=== PATIENT | male | born 1970 | race Caucasian/White ===

== ENCOUNTER 2019-10-09 23:51 | Observation (INO) | payer OTHER ==
[~2019-10-09] VITALS: Ht 193 cm; Wt 99.3 kg
[2019-10-10 00:05] VITALS: BP 144/97
[2019-10-10 01:18] LABS: BASO # 0.1 10*3/uL (0.0-0.1); BASO % 0.9 % (0.0-1.0); EOS # 0.2 10*3/uL (0.0-0.4); EOS % 2.4 % (1.0-4.0); HEMATOCRIT 44.3 % (42.0-52.0); LYMPH # 2.4 10*3/uL (1.3-4.4); LYMPH % 24.6 % (27.0-41.0); MEAN CELL VOLUME 87.7 fl (80.0-94.0); MEAN CORPUSCULAR HGB 29.7 pg (27.0-31.0); MEAN CORPUSCULAR HGB CONC 33.9 g/dl (33.0-37.0); MEAN PLATELET VOLUME 10.1 fl (9.6-12.3); MONO # 0.8 10*3/uL (0.1-1.0); MONO % 8.2 % (3.0-9.0); NEUT # 6.1 10*3/uL (2.3-7.9); NEUT % 63.5 % (47.0-73.0); PLATELET COUNT AUTOMATED 424 10*3/uL (130-400); RED BLOOD COUNT 5.05 10*6/uL (4.50-5.90); RED CELL DISTRI WIDTH 12.8 % (0-14.5); WHITE BLOOD COUNT 9.6 10*3/uL (4.8-10.8)
[2019-10-10 01:25] LABS: ACT PARTIAL THROMBO TIME 25.4 SECONDS (20.0-32.1); INTERNATIONAL NORM RATIO 0.9 (2.0-3.5)
[2019-10-10 01:30] LABS: ALBUMIN 3.6 gm/dl (3.1-4.5); ALKALINE PHOSPHATASE 67 U/L (45-117); BUN 14 mg/dl (7-24); CHLORIDE 110 mmol/L (98-107); CREATININE 1.14 mg/dL (0.70-1.30); POTASSIUM 3.4 mmol/L (3.5-5.1); SGOT/AST 23 IU/L (3-35); SGPT/ALT 34 U/L (12-78); SODIUM 141 mmol/L (136-145); TOTAL PROTEIN 7.1 gm/dL (6.4-8.2)
[2019-10-10 01:31] LABS: TROPONIN I < 0.015 ng/ml (<0.045)
--- NOTE | 2019-10-10 04:00 | NUR ---
PT TO CT. CONDITION STABLE.
--- NOTE | 2019-10-10 04:34 | NUR ---
PT DECLINES CHANGING INTO A HOSPITAL GOWN.
--- NOTE | 2019-10-10 04:49 | NUR ---
PER CONCESSION MANAGER, PT LOOKING FOR WALLET. WILL BRING PT TO FLOOR WHEN WALLET FOUND.
[2019-10-10 05:15] VITALS: BP 159/109; BP 164/104
--- NOTE | 2019-10-10 05:15 | NUR ---
A 49, admitted to 4E, under the services of GRAZYNA Alejo DO with a diagnosis of CHEST PAIN. Chief complaint is CHEST PAIN. Patient arrived via stretcher from ER. Monitor applied. Initial assessment completed. Vital signs taken and recorded. GRAZYNA ALEJO DO notified of admission to the unit. Orders received. See assessment for past medical history, medications and allergies. Patient and/or family oriented to unit. [facility] visitation policy reviewed. Clothing/patient valuable form completed. LISA QUINTANILLA
[2019-10-10 05:20] VITALS: BP 164/104
--- NOTE | 2019-10-10 05:33 | NUR ---
PO NORCO GIVEN PER 'S ORDERS FOR C/O PAIN IN EPIGASTRIC AREA. BP CURRENTLY 164/104 MANUALLY. IN ROOM-AWARE OF ELEVATED BP.
[2019-10-10] MEDS ORDERED: CYCLOBENZAPRINE10 MG PO (05:35)
[2019-10-10] MEDS ORDERED: Motrin,Rufen800 MG PO (05:40)
[2019-10-10] MEDS ORDERED: LISINOPRIL20 MG PO (05:40)
[2019-10-10] MEDS ORDERED: COLD & ALLERGY1 EAC1 PO (05:41)
[2019-10-10] MEDS ORDERED: MUCINEX D ER 61 EACH PO (05:42)
--- NOTE | 2019-10-10 05:47 | NUR ---
MED REC UP TO DATE PER PT RECALL.
--- NOTE | 2019-10-10 06:26 | NUR ---
NOTIFIED OF REPEAT BP 160/98 AND STILL C/O PAIN RATED 03/01. STATES HE WILL NOTIFY
--- NOTE | 2019-10-10 07:06 | NUR ---
'S ANSWERING SERVICE CALLED REGARDING CONSULT. INFORMATION LEFT WITH [employer]NAGEMENT [employer] INCLUDING CALL BACK NUMBER.
--- NOTE | 2019-10-10 07:06 | NUR ---
TEOFILO REECE [id number] Please refer to the physician's history and physical for past medical history, comorbid conditions, and allergies. Diagnosis: CHEST PAIN Greg Score: 18,AT RISK WOUND DESCRIPTIONS: Wound Number: 1 Location of the wound: left plantar aspect below great toe Type of wound: unstageable Thickness: Full Size: 4.5cm x 3.5cm x <0.1cm Tunneling: none Undermining: none Sinus Tract: none Presence of Exudate: none Amount: None Color: Brown, marx Odor: None Periwound Skin Appearance: Erythema Wound edges: approximated Pain (associated with wound): very tender to touch How does patient state this happened? pt stated this is from him walking several different places to visit family members and friends Wound Number: 2 Location of the wound: left plantar aspect below 2nd and 3rd toe Type of wound: stage 2 Thickness: Partial Size: 1.5cm x 4.5cm x <0.1cm Tunneling: none Undermining: none Sinus Tract: none Presence of Exudate: none Amount: None Color: Eldred Odor: None Periwound Skin Appearance: Erythema Wound edges: intact serum filled blister Pain (associated with wound): very tender to touch How does patient state this happened? pt stated this is from him walking several different places to visit family members and friends Wound Number: 3 Location of the wound: right plantar aspect below great and 2nd toe Type of wound: stage 2 Thickness: Partial Size: 1.0cm x 2.7cm x <0.1cm Tunneling: none Undermining: none Sinus Tract: none Presence of Exudate: none Amount: None Color: Eldred Odor: None Periwound Skin Appearance: Erythema Wound edges: intact serum filled blister Pain (associated with wound): very tender to touch How does patient state this happened? pt stated this is from him walking several different places to visit family members and friends Surface the patient is resting on: Position Pro SKIN PREVENTION RECOMMENDATION: 1. Pressure redistribution support surface as appropriate 2. Elevate heels 3. Remove boots/TEDS every shift and reapply 4. Head of bed 30 degrees as tolerated 5. Assess nutrition and hydration 6. Manage moisture 7. Avoid the use of containment devices while in bed 8. Use absorptive products on surfaces limit layers of linens on bed 9. Turn and reposition every 1-2 hours in bed and every 1 hour in chair as tolerated 10. Weight shifts every 15 minutes while up in chair 11. Offloading with pillows or device to keep heels elevated off bed 12. Monitor skin at least every shift 13. Inspect under medical devices twice a day WOUND TREATMENT RECOMMENDATIONS: Venous and arterial studies to bilateral lower extremities. Consult podiatry for areas to bilateral feet for possible debridement if studies allow and toenail care Imaging studies to bilateral feet due to skin impairments and pain Apply sureprep to right plantar aspect below great toe and 2nd toe, left plantar aspect below great toe, right plantar aspect below great and 2nd toe and cover with dsd daily and prn for soiling. Patient is requesting to follow up with podiatry upon discharge
--- NOTE | 2019-10-10 07:10 | NUR ---
NOTIFIED OF CONSULT. NEW ORDERS RECEIVED.
[2019-10-10 07:13] LABS: BASO # 0.1 10*3/uL (0.0-0.1); BASO % 1.2 % (0.0-1.0); EOS # 0.4 10*3/uL (0.0-0.4); EOS % 5.1 % (1.0-4.0); HEMATOCRIT 41.9 % (42.0-52.0); LYMPH # 2.6 10*3/uL (1.3-4.4); LYMPH % 34.6 % (27.0-41.0); MEAN CELL VOLUME 88.4 fl (80.0-94.0); MEAN CORPUSCULAR HGB 29.5 pg (27.0-31.0); MEAN CORPUSCULAR HGB CONC 33.4 g/dl (33.0-37.0); MEAN PLATELET VOLUME 9.7 fl (9.6-12.3); MONO # 0.7 10*3/uL (0.1-1.0); MONO % 9.9 % (3.0-9.0); NEUT # 3.6 10*3/uL (2.3-7.9); NEUT % 48.9 % (47.0-73.0); PLATELET COUNT AUTOMATED 361 10*3/uL (130-400); RED BLOOD COUNT 4.74 10*6/uL (4.50-5.90); RED CELL DISTRI WIDTH 12.8 % (0-14.5); WHITE BLOOD COUNT 7.4 10*3/uL (4.8-10.8)
[2019-10-10 07:45] LABS: BUN 14 mg/dl (7-24); CHLORIDE 109 mmol/L (98-107); CHOLESTEROL 179 mg/dL (<200); CREATININE 1.05 mg/dL (0.70-1.30); HDL CHOLESTEROL 29 mg/dl (40-60); LDL CHOLESTEROL 103 mg/dL (9-159); PHOSPHOROUS 2.5 mg/dL (2.5-4.9); POTASSIUM 3.4 mmol/L (3.5-5.1); SODIUM 140 mmol/L (136-145); TRIGLYCERIDES 236 mg/dl (<150); VLDL CHOLESTEROL 47 mg/dL (6-40)
[2019-10-10] MEDS ORDERED: MARIJUANA (07:45)
--- NOTE | 2019-10-10 08:15 | NUR ---
physician notified that pt is requesting something for pain. pt states that he is having "pain all over; from head to toe". pt rates pain 7/10. the physician answering the phone for designated number states that he is off shift now and that he will let the appropriate physicians know that pt is requesting something for pain. will monitor.
--- NOTE | 2019-10-10 09:00 | NUR ---
Hide Trimmer in to talk to patient. Patient states lives at home with alone. There are no steps in the home. Physician: none Pharmacy: mail Home health services: none Patient's level of ADLs: INDEPENDENT Patient has working utilities: all working DME: none Follow-up physician's appointment after d/c: will be made by hospitalist nurse director upon discharge Does patient want to access PORTAL?: no Discharge plan discussed with patient, he lives at home, is independent in adls and ambulation, he states he will return home when able and denies any home needs, contacted Chio from Business office concering patient's insurance, this insurance is active and is a [facility] medicaid product. OPHELIA POLLOCK
--- NOTE | 2019-10-10 09:13 | NUR ---
PT HAVING ECHO AT THIS TIME. NORCO 5-325 MG PO GIVEN AT THIS TIME PER THE OKAY GIVEN BY DR JACOBO AND DR CARRANZA TO BE GIVEN EARLY DUE TO PT HAVING PAIN. PHYSICIANS GIVE OKAY FOR PT TO HAVE MED WITH SIP OF WATER DUE TO STRESS TEST SCHEDULED FOR TODAY.
[2019-10-10 09:22] LABS: VITAMIN D, 25-HYDROXY 14.5 ng/mL (30-100)
--- NOTE | 2019-10-10 10:02 | NUR ---
Dr. Fuentes notified of wound care recommendations.
--- NOTE | 2019-10-10 10:45 | NUR ---
PT OFF OF FLOOR AT THIS TIME FOR ULTRASOUND
--- NOTE | 2019-10-10 12:10 | NUR ---
INFORMED CONSENT SIGNED FOR LEXISCAN STRESS TEST WITH DR. GARDNRE. RESTING EKG NSR HR 81, BP 12/94. PULSE OX 100% AND LUNGS CLEAR. COMPLETED ONE MINUTE OF LEXISCAN PROTOCOL RECEIVING LEXISCAN 0.4MG OVER [address] CHANGES NOTED WITH NO ARRHYTHMIAS. PT C/O NAUSEA. LAST RECOVERY HR 97, BP 128/78. WAITING NUCLEAR SCANNING IN STABLE CONDITION.
--- NOTE | 2019-10-10 12:17 | NUR ---
CONSULT CALLED TO PODIATRY PER PHYSICIAN ORDERS. CHEMICAL SPRAYER STATES THAT SHE WILL BE IN SOMETIME TODAY TO SEE PATIENT.
--- NOTE | 2019-10-10 12:26 | NUR ---
Nutritional Support Services Note: Pt is on a cardiac diet. Blisters noted to BL feet due to excessive walking around [place]. Encourage healthy eating to support healing of wounds. CBW: 219# Ht: 6'4. No other nutrition intervention needed. HALEIGH Biggs architect intern
--- NOTE | 2019-10-10 12:29 | NUR ---
PT STILL OFF FLOOR AT THIS TIME. PT TO HAVE ULTRASOUND AND STRESS TODAY.
--- NOTE | 2019-10-10 15:00 | NUR ---
NOTIFIED DR CARRANZA THAT PT IS OFF OF FLOOR FOR ARTERIAL ULTRASOUND. WILL CHECK BP WHEN PT RETURNS TO FLOOR.
--- NOTE | 2019-10-10 15:34 | NUR ---
PT RETURNS FROM ARTERIAL US AT THIS TIME.
[2019-10-10 15:38] VITALS: BP 168/90
[2019-10-10] MEDS ORDERED: PROTONIX20 MG PO (15:44)
[2019-10-10] MEDS ORDERED: KLOR-CON M1010 ME1 PO (15:44)
[2019-10-10] MEDS ORDERED: VITAMIN D32000 UNI1 PO (15:44)
--- NOTE | 2019-10-10 15:45 | NUR ---
MEDICAL RECORDS COORDINATOR IN TO SEE PATIENT AT THIS TIME.
[2019-10-10 16:00] VITALS: BP 153/91
--- NOTE | 2019-10-10 16:35 | NUR ---
WENT THROUGH DISCHARGE PAPERWORK AND DISCHARGE MEDICATIONS WITH PATIENT. PT REQUESTS SOMETHING FOR PAIN. DR CARRANZA NOTIFIED AND CALLS BACK AND STATES THAT PT CAN TAKE SOMETHING OTC FOR PAIN AT THIS TIME. WILL NOTIFY PATIENT.
--- NOTE | 2019-10-10 16:50 | NUR ---
Discharge instructions reviewed with patient/family. Patient receptive and verbalizes understanding. Follow-up care arranged. Written instructions given to patient/family. ZORAN DUNLAP
== END 2019-10-10 16:50 | disposition home or self-care (01) ==
LOC: ED 23:51 → 4E 10-10 03:07 → EDHOLD 10-10 03:07 → 4E 10-10 03:07
PROVIDERS: Emergency Medicine; Student in an Organized Health Care Education/Training Program; ADMIT Internal Medicine
DX: R07.89 Other chest pain (principal); E87.6 Hypokalemia; R11.2 Nausea with vomiting, unspecified; D47.3 Essential (hemorrhagic) thrombocythemia; E83.41 Hypermagnesemia; E87.8 Other disorders of electrolyte and fluid balance, not elsewhere classified; K21.9 Gastro-esophageal reflux disease without esophagitis; I10 Essential (primary) hypertension; M19.90 Unspecified osteoarthritis, unspecified site; M51.35 Other intervertebral disc degeneration, thoracolumbar region; F31.9 Bipolar disorder, unspecified; F41.9 Anxiety disorder, unspecified; Z87.11 Personal history of peptic ulcer disease; Z72.0 Tobacco use; Z86.73 Personal history of transient ischemic attack (TIA), and cerebral infarction without residual deficits